=== PATIENT | male | born 1945 | race Caucasian/White ===

== ENCOUNTER 2024-12-27 04:20 | Emergency (ER) | payer OTHER ==
--- NOTE | 2024-12-27 04:35 | ERPHSYRPT ---
- History of Present Illness Source: patient - History of Present Illness Time Seen by Provider: 12/27/24 04:22 Physician History: This is a 79-year-old male who states that he had left-sided kidney stones removed with a stent placed at the [facility] last week and is post to have stones removed from the right side go upcoming this week complaining of significant left lateral abdominal pain radiating to the flank with blood in his urine tonight. No fever or chills. No nausea or vomiting. No chest pain or shortness of breath. No cough. No diarrhea. (CARLOS MANUEL JOHNSON) Allergies/Adverse Reactions: codeine Allergy (Verified 12/27/24 04:27) Swelling Home Medications: Allopurinol 100 mg [Zyloprim 100 mg] 200 mg PO DAILY 12/27/24 [History] Aspirin EC 81 mg [Ecotrin 81 mg] 81 mg PO DAILY 12/27/24 [History] Atorvastatin Calcium 40 mg PO HS 12/27/24 [History] Clopidogrel Bisulfate [Clopidogrel] 75 mg PO DAILY 12/27/24 [History] Fenofibrate Nanocrystallized [Fenofibrate] 145 mg PO DAILY 12/27/24 [History] Ferrous Sulfate [Iron EC] 324 mg PO BID 12/27/24 [History] Finasteride 5 mg [Proscar 5 MG] 5 mg PO DAILY 12/27/24 [History] Lisinopril/Hydrochlorothiazide [Lisinopril-Hctz 20-12.5 mg Tab] 1 each PO DAILY 12/27/24 [History] Metformin HCl [Metformin ER Osmotic] 1,000 mg PO BID 12/27/24 [History] Metoprolol Tartrate 50 mg [Lopressor 50 MG] 50 mg PO BID 12/27/24 [History] Niacin 500 mg PO HS 12/27/24 [History] Omeprazole 40 mg PO DAILY 12/27/24 [History] Tamsulosin HCl [Flomax] 0.4 mg PO HS 12/27/24 [History] - Review of Systems All Other Systems: Reviewed and Negative (As per HPI otherwise negative) - Nursing Vital Signs Nursing Vital Signs: Initial Vital Signs Temperature 96.4 F 12/27/24 04:27 Pulse Rate 68 12/27/24 04:27 Respiratory Rate 18 12/27/24 04:27 Blood Pressure 135/66 12/27/24 04:27 O2 Sat by Pulse Oximetry 95 12/27/24 04:27 Pain Scale Pain Intensity 2 - Physical Exam Comments: 12/27/24 04:33 General: Well-nourished well-developed. No apparent distress. HEENT: Normocephalic atraumatic no obvious facial or neck deformity or injury. Neck: Supple. No deformity or mass noted. CV: RRR NL Perfusion. No edema Resp: No Respiratory distress. Crackles right base. Abd: Nondistended. Tender to palpation with reproduction of symptoms in the left lateral upper quadrant and in left mid lateral abdomen with left CVA tenderness palpation. No tenderness in right upper quadrant or right lower quadrant. Minimal tenderness left lower quadrant. No rebound or guarding. MSK: No deformity or TTP Neuro: Alert and [place] x4. No gross focal neurologic changes Psych: No SI, HI or grave disability 12/27/24 04:44 (CARLOS MANUEL JOHNSON) Ordered Tests: Active Orders 24 hr Category Date Time Status IV Insertion STAT Care 12/27/24 04:30 Active ABDOMEN AND PELVIS W CONTRAST [CT] Stat Exams 12/27/24 04:29 Completed CHEST 1 VIEW (PORTABLE) Stat Exams 12/27/24 04:30 Taken BLOOD CULTURE Stat Lab 12/27/24 04:47 Received CBC W DIFF Stat Lab 12/27/24 04:30 Completed CMP Stat Lab 12/27/24 04:30 Completed CULTURE,URINE Stat Lab 12/27/24 06:55 Received LIPASE Stat Lab 12/27/24 04:30 Completed Lactic Acid Stat Lab 12/27/24 04:31 Completed Lactic Acid Stat Lab 12/27/24 06:25 Completed PT INR [PROTIME WITH INR] Stat Lab 12/27/24 04:30 Completed PTT Stat Lab 12/27/24 04:30 Completed UA W/RFX UR CULTURE Stat Lab 12/27/24 06:55 Completed Medication Summary Generic Name Dose Route Start Last Admin Trade Name Freq PRN Reason Stop Dose Admin Lactated Ringer's 1,000 mls @ 1,000 mls/hr 12/27/24 06:00 12/27/24 07:10 Lactated Ringers IV 01/26/25 05:59 Not Given .Q1H GRACE Discontinued Medications Generic Name Dose Route Start Last Admin Trade Name Freq PRN Reason Stop Dose Admin Hydromorphone HCl 0.5 mg 12/27/24 04:29 12/27/24 04:46 Hydromorphone 1 Mg/1ml Inj IV 12/27/24 04:30 0.5 mg STAT ONE Administration Sodium Chloride 1,000 mls @ 999 mls/hr 12/27/24 04:29 12/27/24 05:48 Sodium Chloride 0.9% 1000 Ml IV 12/27/24 05:29 Infused .Q1H1M STA Infusion Piperacillin Sod/Tazobactam 100 mls @ 200 mls/hr 12/27/24 04:47 12/27/24 05:57 Sod 3.375 gm/ Sodium Chloride IV 12/27/24 05:16 Infused STAT STA Infusion Ondansetron HCl 4 mg 12/27/24 04:29 12/27/24 04:46 Ondansetron Hcl 4 Mg/2 Ml Vial IV 12/27/24 04:30 4 mg STAT ONE Administration Lab/Rad Data: Laboratory Result Diagrams 12/27/24 04:30 12/27/24 04:30 Laboratory Results 12/27/24 12/27/24 12/27/24 Range/Units 06:55 06:25 04:31 WBC (4.23-9.07) x10^3/uL RBC (4.63-6.08) x10^6/uL Hgb (13.7-17.5) g/dL Hct (40.1-51.0) % MCV (79.0-92.2) fL MCH (25.7-32.2) pg MCHC (32.3-36.5) g/dL RDW (11.6-14.4) % Plt Count (163-337) x10^3/uL MPV (9.4-12.4) fL Gran % (34.0-67.9) % Immature Gran % (Auto) (0.001-0.429) % Nucleat RBC Rel Count (0.00-0.2) % Eos # (Auto) (0.04-0.54) x10^3/uL Immature Gran # (Auto) (0.001-0.031) x10^3u/L Absolute Lymphs (auto) (1.32-3.57) x10^3/uL Absolute Monos (auto) (0.30-0.82) x10^3/uL Absolute Nucleated RBC (0.00-0.012) x10^3u/L Lymphocytes % (21.8-53.1) % Monocytes % (5.3-12.2) % Eosinophils % (0.8-7.0) % Basophils % (0.2-1.2) % Absolute Granulocytes (1.78-5.38) x10^3/uL Basophils # (0.01-0.08) x10^3/uL PT (9.4-12.5) SECONDS INR (0.8-3.0) APTT (25.1-36.5) SECONDS Sodium (135-145) mmol/L Potassium (3.5-5.1) mmol/L Chloride (98-107) mmol/L Carbon Dioxide (22-30) mmol/L Anion Gap (5-15) MEQ/L BUN (9-20) mg/dL Creatinine (0.66-1.25) mg/dL Estimated GFR ML/MIN Glucose (74-106) mg/dL Lactic Acid 1.0 2.4 H (0.4-2.0) Calcium (8.4-10.2) mg/dL Total Bilirubin (0.2-1.3) mg/dL AST (17-59) U/L ALT (0-50) U/L Alkaline Phosphatase (38-126) U/L Serum Total Protein (6.3-8.2) g/dL Albumin (3.5-5.0) g/dL Lipase (23-300) U/L Urine Color Red A (Yellow) Urine Appearance Turbid A (Clear) Urine pH 7.0 (4.6-8.0) Ur Specific [place] >=1.030 A (1.005-1.030) Urine Protein >=1000 A (Negative) Urine Glucose (UA) Negative (Negative) mg/dL Urine Ketones Negative (Negative) Urine Blood Moderate A (Negative) Urine Nitrite Negative (Negative) Urine Bilirubin Negative (Negative) Urine Urobilinogen 1.0 A (0.2) mg/dL Ur Leukocyte Esterase Trace A (Negative) U Hyaline Cast (Auto) NONE SEEN (0-2) /LPF Urine Microscopic RBC 51-100 A (0-5) /HPF Urine Microscopic WBC 0-2 (0-5) /HPF Ur Epithelial Cells None Seen (None Seen) /HPF Urine Bacteria None Seen (None Seen) /HPF Urine Culture Reflexed YES (NO) Slides for Path Review 12/27/24 12/27/24 12/27/24 Range/Units 04:30 04:30 04:30 WBC 7.1 (4.23-9.07) x10^3/uL RBC 3.30 L (4.63-6.08) x10^6/uL Hgb 9.6 L (13.7-17.5) g/dL Hct 30.8 L (40.1-51.0) % MCV 93.3 H (79.0-92.2) fL MCH 29.1 (25.7-32.2) pg MCHC 31.2 L (32.3-36.5) g/dL RDW 26.4 H (11.6-14.4) % Plt Count 308 (163-337) x10^3/uL MPV 10.3 (9.4-12.4) fL Gran % 62.1 (34.0-67.9) % Immature Gran % (Auto) 0.6 H (0.001-0.429) % Nucleat RBC Rel Count 0.0 (0.00-0.2) % Eos # (Auto) 0.25 (0.04-0.54) x10^3/uL Immature Gran # (Auto) 0.04 H (0.001-0.031) x10^3u/L Absolute Lymphs (auto) 1.78 (1.32-3.57) x10^3/uL Absolute Monos (auto) 0.59 (0.30-0.82) x10^3/uL Absolute Nucleated RBC 0.00 (0.00-0.012) x10^3u/L Lymphocytes % 25.1 (21.8-53.1) % Monocytes % 8.3 (5.3-12.2) % Eosinophils % 3.5 (0.8-7.0) % Basophils % 0.4 (0.2-1.2) % Absolute Granulocytes 4.41 (1.78-5.38) x10^3/uL Basophils # 0.03 (0.01-0.08) x10^3/uL PT 10.5 (9.4-12.5) SECONDS INR 0.96 (0.8-3.0) APTT 23.2 L (25.1-36.5) SECONDS Sodium 141 (135-145) mmol/L Potassium 3.8 (3.5-5.1) mmol/L Chloride 107 (98-107) mmol/L Carbon Dioxide 25 (22-30) mmol/L Anion Gap 12.9 (5-15) MEQ/L BUN 22 H (9-20) mg/dL Creatinine 0.80 (0.66-1.25) mg/dL Estimated GFR 91.2 ML/MIN Glucose 111 H (74-106) mg/dL Lactic Acid (0.4-2.0) Calcium 10.2 (8.4-10.2) mg/dL Total Bilirubin 0.30 (0.2-1.3) mg/dL AST 26 (17-59) U/L ALT 13 (0-50) U/L Alkaline Phosphatase 42 (38-126) U/L Serum Total Protein 6.5 (6.3-8.2) g/dL Albumin 4.3 (3.5-5.0) g/dL Lipase 78 (23-300) U/L Urine Color (Yellow) Urine Appearance (Clear) Urine pH (4.6-8.0) Ur Specific [place] (1.005-1.030) Urine Protein (Negative) Urine Glucose (UA) (Negative) mg/dL Urine Ketones (Negative) Urine Blood (Negative) Urine Nitrite (Negative) Urine Bilirubin (Negative) Urine Urobilinogen (0.2) mg/dL Ur Leukocyte Esterase (Negative) U Hyaline Cast (Auto) (0-2) /LPF Urine Microscopic RBC (0-5) /HPF Urine Microscopic WBC (0-5) /HPF Ur Epithelial Cells (None Seen) /HPF Urine Bacteria (None Seen) /HPF Urine Culture Reflexed (NO) Slides for Path Review YES - Progress Progress Note: 12/27/24 08:[address] Johnson, labs and CT reviewed, urine reveals gross hematuria, CT reveals large clot in bladder, large clot in renal pelvis; [facility] HOWELL[facility] 12/27/24 04:49 Patient evaluated on arrival. History as per above. Noted elevated lactate returns. Patient will have blood cultures and urine culture as well as beginning Zosyn for presumed infection. Patient has ureter and presume at this time intra-abdominal infection, ureteral or stent infection. 12/27/24 05:05 Patient's ex- arrives and gives additional history. Patient has had a history of an abdominal aneurysm with stent repair in October 2024 2 months ago. He also has a history of bleeding ulcers which she has had treated in the last few weeks it sounds like ablation by her description. He has had endoscopy and colonoscopy in the last few weeks. He has the aforementioned renal stents and multiple kidney stones. [facility] and in [place]. Patient still relates he has pain in his left lateral abdomen and left flank and no mid abdominal pain of significance on my examination. No pulsatile mass or bruit. 12/27/24 06:01 Patient returns from CAT scan. Pain controlled. Labs stable. Repeat lactate at 6:30 AM. Additional liter of fluid to be given. Being judicious with fluids so as not to cause volume overload and patient that does not appear to have severe sepsis as his blood pressure is stable. Endorsing patient over to Dr. Howell daytime emergency physician for final evaluation and disposition of patient. 12/27/24 08:49 (CARLOS MANUEL JOHNSON) - Departure Departure Disposition: Transfer Critical Care Time: No - Departure Clinical Impression: Abdominal pain Condition: Stable Referrals: [facility] [Primary Care Provider, UNKNOWN] - Follow up/PCP as directed
[2024-12-27 04:43] VITALS: TEMP 96.4
[2024-12-27] MEDS ORDERED: Zofran 4 MG/2 ML VIAL ONE (04:44)
[2024-12-27] MEDS ORDERED: Hydromorphone 1 mg/ml Injection ONE (04:44)
[2024-12-27] MEDS: Hydromorphone 1 mg/ml Injection IV ONE (04:46)
[2024-12-27] MEDS: Zofran 4 MG/2 ML VIAL IV ONE (04:46)
[2024-12-27 04:51] LABS: BASOPHIL % 0.4 % (0.2-1.2); Basophil (Absolute #) 0.03 x10^3/uL (0.01-0.08); Eosinophil (Absolute #) 0.25 x10^3/uL (0.04-0.54); Hematocrit 30.8 % (40.1-51.0); Hemoglobin 9.6 g/dL (13.7-17.5); IMMATURE GRAN # 0.04 x10^3u/L (0.001-0.031); IMMATURE GRAN % 0.6 % (0.001-0.429); Lymphocyte (Absolute #) 1.78 x10^3/uL (1.32-3.57); Mean Corpuscular Hemoglobin 29.1 pg (25.7-32.2); Mean Corpuscular Hgb Concent. 31.2 g/dL (32.3-36.5); Monocyte (Absolute #) 0.59 x10^3/uL (0.30-0.82); NUCLEATED RBC # 0.00 x10^3u/L (0.00-0.012); NUCLEATED RBC % 0.0 % (0.00-0.2); Platelet Count 308 x10^3/uL (163-337); Red Blood Count 3.30 x10^6/uL (4.63-6.08); White Blood Count 7.1 x10^3/uL (4.23-9.07)
[2024-12-27 05:04] LABS: Calcium 10.2 mg/dL (8.4-10.2); Carbon Dioxide 25.0 mmol/L (22-30); Creatinine 1 0.8 mg/dL (0.66-1.25); EST GLOMERULAR FILTRATION RATE 91.2 ML/MIN; Glucose 111.0 mg/dL (74-106); Potassium 3.8 mmol/L (3.5-5.1); SGOT/AST 26.0 U/L (17-59); SGPT/ALT 13.0 U/L (0-50); Total Protein 6.5 g/dL (6.3-8.2)
[2024-12-27 05:06] LABS: INR 0.96 (0.8-3.0); PROTIME 10.5 SECONDS (9.4-12.5); PTT 23.2 SECONDS (25.1-36.5)
[2024-12-27] MEDS ORDERED: PIPERACILLIN/TAZOBACTAM IV ONE (05:26)
[2024-12-27 05:40] LABS: Slide Review 1 YES
[2024-12-27] MEDS ORDERED: Lactated Ringers 1,000 ML IV ONE (06:08)
[2024-12-27] MEDS: Lactated Ringers 1,000 ML IV SCH (06:09)
--- NOTE | 2024-12-27 07:01 | XRAY ---
CLINICAL HISTORY: Abd Pain COMPARISON: None. TECHNIQUE: Contiguous axial images were obtained from the level of the diaphragm to the pubic symphysis with intravenous contrast. Coronal and sagittal reconstructions were likewise performed and indicated to increase the sensitivity for detecting clinically relevant pathology. If IV contrast material had not been administered, the likelihood of detecting abnormalities relevant to the patient's condition would have been substantially decreased. CT scan was performed according to ALARA (as low as reasonably achievable). FINDINGS: The visualized lung bases show bibasal atelectatic changes with cyst in right lower lobe. The liver is normal in size and attenuation. No focal liver lesions are seen. There is no intra or extrahepatic biliary ductal dilatation. Hepatic vasculature is patent. The gallbladder is present. The spleen, pancreas, and adrenal glands are unremarkable. The kidneys are normal in size and attenuation. About 16 mm sized calculus is noted involving right renal pelvis - HU 1700. Mild inflammatory wall thickening is noted involving right renal pelvis and right proximal ureter- inflammatory changes. Left sided moderate hydronephrosis with dilated left renal pelvis is seen. Evidence of well defined hyperdensity is noted involving left renal pelvis and calyces (HU 56). It measures about 46 x 58 mm.- possibility of blood clot likely over lesion. Similar density is also noted in urinary bladder, measuring about 56 x 64 mm- bladder clot likely over lesion. DJ stent seen on left side. Upper pole of stent is noted at the pelviureteric junction- need repositioning. Few simple cortical cyst are noted in both kidneys Pelvic viscera are unremarkable. No focal or diffuse bowel wall thickening or evidence of bowel obstruction is identified. No imaging evidence of appendicitis. Abdominal and pelvic vasculature is patent. No adenopathy or fluid collections are seen. No aggressive appearing osseous lesions are identified. Infrarenal abdominal aortic aneurysm with diameter measures about 45 mm. Bifurcating and vascular stents are noted involving abdominal aorta and iliac arteries. IMPRESSION: 1. About 16 mm sized calculus is noted involving right renal pelvis - HU 1700. Mild inflammatory wall thickening is noted involving right renal pelvis and right proximal ureter- inflammatory changes. 2. Left sided moderate hydronephrosis with dilated left renal pelvis is seen. Evidence of well defined hyperdensity is noted involving left renal pelvis and calyces (HU 56). It measures about 46 x 58 mm.- possibility of blood clot likely over lesion. 3. Similar density is also noted in urinary bladder, measuring about 56 x 64 mm- bladder clot likely over lesion. 4. DJ stent seen on left side. Upper pole of stent is noted at the pelviureteric junction- need repositioning. 5. Infrarenal abdominal aortic aneurysm with diameter measures about 45 mm. Bifurcating and vascular stents are noted involving abdominal aorta and iliac arteries. 6. Few simple cortical cyst are noted in both kidneys Electronically Signed by: Sam Avery MD. (12/27/2024 07:00:01 EDT)
[2024-12-27 07:19] LABS: Glucose, Urine Negative (Negative); Protein,Urine Dip >=1000 (Negative); RBC 51-100 /HPF (0-5); WBC 0-2 /HPF (0-5)
--- NOTE | 2024-12-27 09:31 | XRAY ---
Indication: Cough. Comparison: None Portable chest demonstrates minimal bibasilar subsegmental atelectasis/scarring. Remaining heart and lungs unremarkable. Bony thorax intact with osteopenia and mild degenerative changes. No acute findings.
--- NOTE | 2024-12-27 11:38 | ERPHSYRPT ---
- History of Present Illness Time Seen by Provider: 12/27/24 04:22 Patient Subjective Stated Complaint: pt states he thinks he is bleeding in his stomach Triage Nursing Assessment: pt came into the er via ambulance; pt is axo x3; c/o abd pain; pt states 8/10 to LLQ; pt denies N/V/D; abd soft, tender; active bowel sounds in all quads; tenderness to LLQ and left flank; skin PDW; no respiratory distress present; vitals wnl Allergies/Adverse Reactions: codeine Allergy (Verified 12/27/24 04:27) Swelling Home Medications: Allopurinol 100 mg [Zyloprim 100 mg] 200 mg PO DAILY 12/27/24 [History] Aspirin EC 81 mg [Ecotrin 81 mg] 81 mg PO DAILY 12/27/24 [History] Atorvastatin Calcium 40 mg PO HS 12/27/24 [History] Clopidogrel Bisulfate [Clopidogrel] 75 mg PO DAILY 12/27/24 [History] Fenofibrate Nanocrystallized [Fenofibrate] 145 mg PO DAILY 12/27/24 [History] Ferrous Sulfate [Iron EC] 324 mg PO BID 12/27/24 [History] Finasteride 5 mg [Proscar 5 MG] 5 mg PO DAILY 12/27/24 [History] Lisinopril/Hydrochlorothiazide [Lisinopril-Hctz 20-12.5 mg Tab] 1 each PO DAILY 12/27/24 [History] Metformin HCl [Metformin ER Osmotic] 1,000 mg PO BID 12/27/24 [History] Metoprolol Tartrate 50 mg [Lopressor 50 MG] 50 mg PO BID 12/27/24 [History] Niacin 500 mg PO HS 12/27/24 [History] Omeprazole 40 mg PO DAILY 12/27/24 [History] Tamsulosin HCl [Flomax] 0.4 mg PO HS 12/27/24 [History] Immunizations Up to Date: Yes Travel Risk - International Travel Have you traveled outside of the country in past 3 weeks: No - Emerging Infectious Disease Are you exhibiting symptoms associated with any current EIDs: Yes Symptoms: Abdominal Pain - Past Medical History Pertinent Past Medical History: Yes Neurological History: No Pertinent History ENT History: No Pertinent History Cardiac History: High Cholesterol, Hypertension Respiratory History: COPD Endocrine Medical History: Diabetes Type II GI Medical History: GERD Male Reproductive Disorders: Prostate Problems - Past Surgical History Past Surgical History: Yes Neuro Surgical History: No Pertinent History Cardiac: Cardiac Stent, Other Respiratory: No Pertinent History Gastrointestinal: Hernia Repair Genitourinary: Kidney Surgery Musculoskeletal: Orthopedic Surgery Other Surgical History: kidney surgery, aortia stent, cardic stents x3, bladder surgery, left leg surgery - Social History Smoking Status: Current every day smoker How long have you smoked: 60 Exposure to second hand smoke: No Drug Use: none - Social Determinants of Health Will the patient participate in the screening: Declined to provide - Nursing Vital Signs Nursing Vital Signs: Initial Vital Signs Temperature 96.4 F 12/27/24 04:27 Pulse Rate 68 12/27/24 04:27 Respiratory Rate 18 12/27/24 04:27 Blood Pressure 135/66 12/27/24 04:27 O2 Sat by Pulse Oximetry 95 12/27/24 04:27 Pain Scale Pain Intensity 4 - Physical Exam SpO2: 99 Ordered Tests: Active Orders 24 hr Category Date Time Status IV Insertion STAT Care 12/27/24 04:30 Active ABDOMEN AND PELVIS W CONTRAST [CT] Stat Exams 12/27/24 04:29 Completed CHEST 1 VIEW (PORTABLE) Stat Exams 12/27/24 04:30 Completed BLOOD CULTURE Stat Lab 12/27/24 04:47 Received CBC W DIFF Stat Lab 12/27/24 04:30 Completed CMP Stat Lab 12/27/24 04:30 Completed CULTURE,URINE Stat Lab 12/27/24 06:55 Received LIPASE Stat Lab 12/27/24 04:30 Completed Lactic Acid Stat Lab 12/27/24 04:31 Completed Lactic Acid Stat Lab 12/27/24 06:25 Completed PT INR [PROTIME WITH INR] Stat Lab 12/27/24 04:30 Completed PTT Stat Lab 12/27/24 04:30 Completed UA W/RFX UR CULTURE Stat Lab 12/27/24 06:55 Completed Medication Summary Generic Name Dose Route Start Last Admin Trade Name Freq PRN Reason Stop Dose Admin Lactated Ringer's 1,000 mls @ 1,000 mls/hr 12/27/24 06:00 12/27/24 07:10 Lactated Ringers IV 01/26/25 05:59 Not Given .Q1H GRACE Discontinued Medications Generic Name Dose Route Start Last Admin Trade Name Freq PRN Reason Stop Dose Admin Hydromorphone HCl 0.5 mg 12/27/24 04:29 12/27/24 04:46 Hydromorphone 1 Mg/1ml Inj IV 12/27/24 04:30 0.5 mg STAT ONE Administration Hydromorphone HCl Confirm 12/27/24 04:44 Hydromorphone 1 Mg/1ml Inj Administered 12/27/24 04:45 Dose 1 mg .ROUTE .STK-MED ONE Sodium Chloride 1,000 mls @ 999 mls/hr 12/27/24 04:29 12/27/24 05:48 Sodium Chloride 0.9% 1000 Ml IV 12/27/24 05:29 Infused .Q1H1M STA Infusion Piperacillin Sod/Tazobactam 100 mls @ 200 mls/hr 12/27/24 04:47 12/27/24 05:57 Sod 3.375 gm/ Sodium Chloride IV 12/27/24 05:16 Infused STAT STA Infusion Sodium Chloride Confirm 12/27/24 04:44 Sodium Chloride 0.9% 1000 Ml Administered 12/27/24 04:45 Dose 1,000 mls @ ud .ROUTE .STK-MED ONE Sodium Chloride Confirm 12/27/24 05:26 Sodium Chloride 0.9% Administered 12/27/24 05:27 Dose 100 mls @ ud .ROUTE .STK-MED ONE Ondansetron HCl 4 mg 12/27/24 04:29 12/27/24 04:46 Ondansetron Hcl 4 Mg/2 Ml Vial IV 12/27/24 04:30 4 mg STAT ONE Administration Ondansetron HCl Confirm 12/27/24 04:44 Ondansetron Hcl 4 Mg/2 Ml Vial Administered 12/27/24 04:45 Dose 4 mg .ROUTE .STK-MED ONE Piperacillin Sod/Tazobactam Sod Confirm 12/27/24 05:26 Piperacillin/Tazobactam Sodium 3.375 Gm Vial Administered 12/27/24 05:27 Dose 3.375 gm IV .STK-MED ONE Lab/Rad Data: Laboratory Result Diagrams 12/27/24 04:30 12/27/24 04:30 Laboratory Results 12/27/24 12/27/24 12/27/24 Range/Units 06:55 06:25 04:31 WBC (4.23-9.07) x10^3/uL RBC (4.63-6.08) x10^6/uL Hgb (13.7-17.5) g/dL Hct (40.1-51.0) % MCV (79.0-92.2) fL MCH (25.7-32.2) pg MCHC (32.3-36.5) g/dL RDW (11.6-14.4) % Plt Count (163-337) x10^3/uL MPV (9.4-12.4) fL Gran % (34.0-67.9) % Immature Gran % (Auto) (0.001-0.429) % Nucleat RBC Rel Count (0.00-0.2) % Eos # (Auto) (0.04-0.54) x10^3/uL Immature Gran # (Auto) (0.001-0.031) x10^3u/L Absolute Lymphs (auto) (1.32-3.57) x10^3/uL Absolute Monos (auto) (0.30-0.82) x10^3/uL Absolute Nucleated RBC (0.00-0.012) x10^3u/L Lymphocytes % (21.8-53.1) % Monocytes % (5.3-12.2) % Eosinophils % (0.8-7.0) % Basophils % (0.2-1.2) % Absolute Granulocytes (1.78-5.38) x10^3/uL Basophils # (0.01-0.08) x10^3/uL PT (9.4-12.5) SECONDS INR (0.8-3.0) APTT (25.1-36.5) SECONDS Sodium (135-145) mmol/L Potassium (3.5-5.1) mmol/L Chloride (98-107) mmol/L Carbon Dioxide (22-30) mmol/L Anion Gap (5-15) MEQ/L BUN (9-20) mg/dL Creatinine (0.66-1.25) mg/dL Estimated GFR ML/MIN Glucose (74-106) mg/dL Lactic Acid 1.0 2.4 H (0.4-2.0) Calcium (8.4-10.2) mg/dL Total Bilirubin (0.2-1.3) mg/dL AST (17-59) U/L ALT (0-50) U/L Alkaline Phosphatase (38-126) U/L Serum Total Protein (6.3-8.2) g/dL Albumin (3.5-5.0) g/dL Lipase (23-300) U/L Urine Color Red A (Yellow) Urine Appearance Turbid A (Clear) Urine pH 7.0 (4.6-8.0) Ur Specific [place] >=1.030 A (1.005-1.030) Urine Protein >=1000 A (Negative) Urine Glucose (UA) Negative (Negative) mg/dL Urine Ketones Negative (Negative) Urine Blood Moderate A (Negative) Urine Nitrite Negative (Negative) Urine Bilirubin Negative (Negative) Urine Urobilinogen 1.0 A (0.2) mg/dL Ur Leukocyte Esterase Trace A (Negative) U Hyaline Cast (Auto) NONE SEEN (0-2) /LPF Urine Microscopic RBC 51-100 A (0-5) /HPF Urine Microscopic WBC 0-2 (0-5) /HPF Ur Epithelial Cells None Seen (None Seen) /HPF Urine Bacteria None Seen (None Seen) /HPF Urine Culture Reflexed YES (NO) Slides for Path Review 12/27/24 12/27/24 12/27/24 Range/Units 04:30 04:30 04:30 WBC 7.1 (4.23-9.07) x10^3/uL RBC 3.30 L (4.63-6.08) x10^6/uL Hgb 9.6 L (13.7-17.5) g/dL Hct 30.8 L (40.1-51.0) % MCV 93.3 H (79.0-92.2) fL MCH 29.1 (25.7-32.2) pg MCHC 31.2 L (32.3-36.5) g/dL RDW 26.4 H (11.6-14.4) % Plt Count 308 (163-337) x10^3/uL MPV 10.3 (9.4-12.4) fL Gran % 62.1 (34.0-67.9) % Immature Gran % (Auto) 0.6 H (0.001-0.429) % Nucleat RBC Rel Count 0.0 (0.00-0.2) % Eos # (Auto) 0.25 (0.04-0.54) x10^3/uL Immature Gran # (Auto) 0.04 H (0.001-0.031) x10^3u/L Absolute Lymphs (auto) 1.78 (1.32-3.57) x10^3/uL Absolute Monos (auto) 0.59 (0.30-0.82) x10^3/uL Absolute Nucleated RBC 0.00 (0.00-0.012) x10^3u/L Lymphocytes % 25.1 (21.8-53.1) % Monocytes % 8.3 (5.3-12.2) % Eosinophils % 3.5 (0.8-7.0) % Basophils % 0.4 (0.2-1.2) % Absolute Granulocytes 4.41 (1.78-5.38) x10^3/uL Basophils # 0.03 (0.01-0.08) x10^3/uL PT 10.5 (9.4-12.5) SECONDS INR 0.96 (0.8-3.0) APTT 23.2 L (25.1-36.5) SECONDS Sodium 141 (135-145) mmol/L Potassium 3.8 (3.5-5.1) mmol/L Chloride 107 (98-107) mmol/L Carbon Dioxide 25 (22-30) mmol/L Anion Gap 12.9 (5-15) MEQ/L BUN 22 H (9-20) mg/dL Creatinine 0.80 (0.66-1.25) mg/dL Estimated GFR 91.2 ML/MIN Glucose 111 H (74-106) mg/dL Lactic Acid (0.4-2.0) Calcium 10.2 (8.4-10.2) mg/dL Total Bilirubin 0.30 (0.2-1.3) mg/dL AST 26 (17-59) U/L ALT 13 (0-50) U/L Alkaline Phosphatase 42 (38-126) U/L Serum Total Protein 6.5 (6.3-8.2) g/dL Albumin 4.3 (3.5-5.0) g/dL Lipase 78 (23-300) U/L Urine Color (Yellow) Urine Appearance (Clear) Urine pH (4.6-8.0) Ur Specific [place] (1.005-1.030) Urine Protein (Negative) Urine Glucose (UA) (Negative) mg/dL Urine Ketones (Negative) Urine Blood (Negative) Urine Nitrite (Negative) Urine Bilirubin (Negative) Urine Urobilinogen (0.2) mg/dL Ur Leukocyte Esterase (Negative) U Hyaline Cast (Auto) (0-2) /LPF Urine Microscopic RBC (0-5) /HPF Urine Microscopic WBC (0-5) /HPF Ur Epithelial Cells (None Seen) /HPF Urine Bacteria (None Seen) /HPF Urine Culture Reflexed (NO) Slides for Path Review YES - Progress Progress Note: 12/27/24 11:37 Discussed possible transfer with (Urology [facility]); He recommends that the patient be discharged home and will follow-up next week as scheduled, he reviewed CT scan and lab work, He also recommended that patient undergo bladder scan if he has less than 100 cc of urine in his bladder he may be discharged 12/27/24 17:13 Bladder scan revealed 350 cc of urine in the bladder, Neil catheter was placed and 450 cc of bloody urine, he was hooked up to I and his urine was clear to pink [facility], Urology was recontacted at the [facility] and recommend the patient be transferred to them and he is going there directly - Departure Departure Disposition: Transfer Clinical Impression: Abdominal pain, Hematuria Condition: Stable Critical Care Time: No
[2024-12-27 14:23] VITALS: PULSE 70; RESP 18
[2024-12-27 17:14] VITALS: O2SAT 99
[2024-12-27 17:29] VITALS: BP 119/66
== END 2024-12-27 17:15 | disposition short-term general hospital (02) ==
LOC: ED 04:20
DX: R31.9 Hematuria, unspecified (principal); R10.9 Unspecified abdominal pain; I10 Essential (primary) hypertension; E11.9 Type 2 diabetes mellitus without complications; Z79.02 Long term (current) use of antithrombotics/antiplatelets; Z79.84 Long term (current) use of oral hypoglycemic drugs; Z79.899 Other long term (current) drug therapy; Z72.0 Tobacco use